=== PATIENT | male | born 1995 ===

== ENCOUNTER 2023-03-19 18:37 | Emergency (ER) | payer SELFPAY ==
[2023-03-19 18:38] VITALS: BP 129/81; PULSE 73; RESP 17; TEMP 36.5; O2SAT 99
--- NOTE | 2023-03-19 19:53 | PC.NURSE ---
called pt to go back to room. no answer.
== END 2023-03-19 20:33 | disposition left against medical advice (07) ==
LOC: ANHED 20:02
DX: K08.89 Other specified disorders of teeth and supporting structures (principal)
CPT/HCPCS: 99199